=== PATIENT | male | born 1985 | race Caucasian/White ===

== ENCOUNTER 2022-12-06 16:10 | Emergency (ER) | payer MEDICAID, SELFPAY ==
[2022-12-06 16:15] VITALS: BP 137/87; PULSE 100; RESP 18; TEMP 37.6; O2SAT 97; BMI 24.7
--- NOTE | 2022-12-06 16:39 | ED_ITS ---
HPI - General Adult General Time Seen by Provider: 16:40 Date Seen: 12/06/22 Chief complaint: Alcohol/Intoxication Stated complaint: Withdrawl Time Seen by Provider: 12/06/22 16:11 Source: patient Mode of arrival: ambulatory Limitations: no limitations History of Present Illness HPI narrative: Patient is a 37 year white male who has got a history of chronic alcoholism since age 15. He just started today with inpatient chemical dependency treatment in [place]. He drank at 10:30 a.m. this morning about 5 hours ago, and reports several alcoholic beverages at that time. He has a little bit anxious and was a little shaky and they were concerned he is in withdrawal and sent him to the hospital. He has never had alcohol drawl seizures never been hospitalized for withdrawal. He typically does not withdraw for 2-3 days after stopping drinking. He is otherwise quite healthy. No chest pain breathing problem, fevers or chills, no COVID symptoms Related Data Previous Rx's Medication Instructions Recorded lorazepam 0.5 mg tablet (Ativan) 0.5 mg PO TID PRN #7 tabs 12/06/22 lorazepam 0.5 mg tablet (Ativan) 0.5 mg PO TID PRN #7 tabs 12/06/22 Allergies Allergy/AdvReac Type Severity Reaction Status Date / Time No Known Drug Allergies Allergy Verified 12/06/22 16:14 Review of Systems Status of ROS: Reports: 6 or more systems reviewed and unremarkable except as noted in History and [facility] Social History Smoking Status: Current some day smoker What tobacco products do you use: cigarettes Years smoked: 22 Do you use any of these nicotine containing products: Vaping Products Second hand tobacco smoke exposure: No How often do you have a drink containing alcohol: 4 or more times a week How many standard drinks containing alcohol do you have on a typical day: 10 or more How often do you have six or more drinks on one occasion: Daily or almost daily AUDIT-C Alcohol total score: 12 Non-prescribed substance use: denies use service: No Exam Narrative: Exam Narrative: Objective: Patient's vital signs are largely unremarkable other is temperature is just minimally elevated HEENT is unremarkable no facial asymmetry no scleral icterus mouth is clear Neck is supple Pulse regular Heart rhythm regular without murmur Abdomen benign Extremities are no edema neurologic nonfocal No tremor noted Const: Vital Signs, click to edit/add: Vital Signs - 24 hr 12/06/22 16:15 Temperature 99.6 F Pulse Rate [Pulse Oximeter] 100 Respiratory Rate 18 Blood Pressure [Ri ght Upper Arm] 137/87 Pulse Oximetry 97 Oxygen Delivery Me thod Room Air Course Vital Signs Vital signs: Initial Vital Signs Temperature 99.6 F 12/06/22 16:15 Temperature Source Temporal Artery Scan 12/06/22 16:15 Pulse Rate 100 12/06/22 16:15 Pulse Rhythm 12/06/22 16:15 Respiratory Rate 18 12/06/22 16:15 Blood Pressure 137/87 12/06/22 16:15 Blood Pressure Mean 103 12/06/22 16:15 Blood Pressure Position Supine 12/06/22 16:15 Pulse Oximetry 97 12/06/22 16:15 Oxygen Delivery Method 12/06/22 16:15 Vital Signs Temperature 99.6 F 12/06/22 16:15 Pulse Rate 100 12/06/22 16:15 Respiratory Rate 18 12/06/22 16:15 Blood Pressure 137/87 12/06/22 16:15 Pulse Oximetry 97 12/06/22 16:15 Oxygen Delivery Method 12/06/22 16:15 Temperature 99.6 F 12/06/22 16:15 Pulse Rate 100 12/06/22 16:15 Respiratory Rate 18 12/06/22 16:15 Blood Pressure 137/87 12/06/22 16:15 Pulse Oximetry 97 12/06/22 16:15 Oxygen Delivery Method 12/06/22 16:15 Medical Decision Making MDM Narrative Medical decision making narrative: Patient is a 37 year white male with chronic alcoholism with drinking today, with mild anxiety today, started inpatient chemical dependency treatment. I think at this point to be helpful for him for his anxiety to have some Ativan 0.5 mg p.o., will check his laboratory studies as well as alcohol level. Given he drank within the last few hours it is unlikely that he is in withdrawal. I think he can safely return to chemical dependency treatment later today if his labs look reassuring, will give him some Ativan 0.5 mg t.i.d. p.r.n. 6 tablets so that he has something for anxiety or if he is feeling anxious. Addendum: Patient feels markedly better, his lab studies look reassuring. His alcohol level is 0.02, he has a CBC and a Chem profile looks largely unremarkable, glucose is still pending. Liquid safely discharge him home with Ativan for anxiety as needed, this may help some of his shakiness as well although I do not think is in active withdrawal given the prominence of his drinking to his presentation to the ER. He can return if there is problems or concerns, he will return inpatient treatment care Lab Data Labs: Lab Results 12/06/22 12/06/22 Range/Units 16:38 16:51 WBC 4.90 (4.50-11.00) K/uL RBC 4.44 (4.30-5.90) m/uL Hgb 14.4 (13.5-17.5) gm/dL Hct 43.1 (37.0-53.0) % MCV 97 (80-100) fL MCH 32 (26-34) pg MCHC 33 (32-36) gm/dL RDW Coeff of Hanna 12.4 (11.5-15.5) % Plt Count 253 (140-440) K/uL Neut % (Auto) 60.6 (42.0-72.0) % Lymph % (Auto) 27.6 (20-44) % [place] % (Auto) 10.6 (0.0-11.0) % Eos % (Auto) 0.6 (0.0-7.0) % Baso % (Auto) 0.4 (0.0-3.0) % Neut # (Auto) 2.97 (1.7-7.0) K/uL Lymph # (Auto) 1.35 (0.90-2.90) K/uL [place] # (Auto) 0.50 (0.00-0.90) K/UL Eos # (Auto) 0.03 (0.00-0.50) K/uL Baso # (Auto) 0.02 (0.00-0.30) K/uL Sodium 140 (135-149) mmol/L Potassium 3.9 (3.6-5.1) mmol/L Chloride 104 (96-114) mmol/L Carbon Dioxide 23 (20-32) mmol/L BUN 13 (5-24) mg/dL Creatinine 0.9 (0.5-1.5) mg/dL Estimated Creat Clear 120.95 Estimated GFR 111 ml/min Glucose 90 (60-115) mg/dL Calcium 9.2 (8.4-10.6) mg/dL Ethyl Alcohol 0.02 (0.01-0.03) % Discharge Plan Discharge Clinical Impression: Alcoholism, chronic Patient Disposition: Home w/ Parent or Adult Condition: Improved Additional Instructions: Ativan 0.5 mg t.i.d. p.r.n. as needed for anxiety, observation, return to ED as needed. Re-engage in inpatient chemical dependency treatment recommended Activity Level: No Restrictions Discharge Diet: Regular Prescriptions: New lorazepam [Ativan] 0.5 mg tablet 0.5 mg PO TID PRNQty: 7 0RF lorazepam [Ativan] 0.5 mg tablet 0.5 mg PO TID PRNQty: 7 0RF Stand Alone Forms: [employer] Info Instructions
[2022-12-06] MEDS: LORazepam 0.5 MG TABLET PO (16:46)
[2022-12-06 17:28] LABS: Basophils Absolute Auto 0.02 K/uL (0.00-0.30); Basophils Percent Auto 0.4 % (0.0-3.0); Eosinophils Absolute Auto 0.03 K/uL (0.00-0.50); Eosinophils Percent Auto 0.6 % (0.0-7.0); Hematocrit 43.1 % (37.0-53.0); Hemoglobin* 14.4 gm/dL (13.5-17.5); Immature Granulocytes Abs Auto 0.01 K/uL (0.00-0.30); Immature Granulocytes Pct Auto 0.2 %; Lymphocytes Absolute Auto 1.35 K/uL (0.90-2.90); Lymphocytes Percent Auto 27.6 % (20-44); Mean Corpuscular HGB Conc 33 gm/dL (32-36); Mean Corpuscular Hemoglobin 32 pg (26-34); Mean Corpuscular Volume 97 fL (80-100); Monocytes Percent Auto 10.6 % (0.0-11.0); Neutrophils Absolute Auto 2.97 K/uL (1.7-7.0); Neutrophils Percent Auto 60.6 % (42.0-72.0); Platelet Count* 253 K/uL (140-440); RDW Coefficient of Variation % 12.4 % (11.5-15.5); Red Blood Count 4.44 m/uL (4.30-5.90); Slide Review Reflex No
[2022-12-06 17:41] LABS: Chloride* 104 mmol/L (96-114); Potassium* 3.9 mmol/L (3.6-5.1); Sodium* 140 mmol/L (135-149)
[2022-12-06 17:44] LABS: Blood Urea Nitrogen* 13 mg/dL (5-24); Carbon Dioxide* 23 mmol/L (20-32); Creatinine* 0.9 mg/dL (0.5-1.5); Est. Creatinine Clearance* 120.95; Estimated Glomerular Filt Rate 111 ml/min; Ethanol* 0.02 % (0.01-0.03)
[2022-12-06 17:45] LABS: Calcium* 9.2 mg/dL (8.4-10.6); Glucose* 90 mg/dL (60-115)
[2022-12-06] MEDS: LORazepam 1 MG TABLET 0.5 MG PO (18:09)
== END 2022-12-06 18:11 | disposition home or self-care (01) ==
LOC: ED 17:07
PROVIDERS: Emergency Provider Family Medicine
DX: F10.20 Alcohol dependence, uncomplicated (principal)
CPT/HCPCS: 36415; 80048; 82077; 85025; 99283; 99284; A9270